=== PATIENT | male | born 1960 | race Caucasian/White ===

== ENCOUNTER 2017-05-27 16:22 | Emergency (ER) | payer MEDICARE ==
[~2017-05-27] VITALS: Ht 182.9 cm; Wt 120.0 kg
[2017-05-27 16:37] VITALS: BP 132/85; PULSE 94; RESP 18; TEMP 98.1; O2SAT 98
[2017-05-27] MEDS ORDERED: RANI150T PO (18:09)
[2017-05-27] MEDS ORDERED: LORA-373 PO (18:09)
[2017-05-27] MEDS ORDERED: FLUO40CA PO (18:09)
[2017-05-27] MEDS ORDERED: CIAL5TAB PO (18:09)
[2017-05-27] MEDS ORDERED: RAMI10CA PO (18:09)
[2017-05-27] MEDS ORDERED: CYCL1TAB29 PO (18:09)
[2017-05-27] MEDS ORDERED: TAMS0.4C4 PO (18:09)
[2017-05-27] MEDS ORDERED: GABA600T PO (18:09)
[2017-05-27] MEDS ORDERED: OXYC1TAB63 PO (18:09)
[2017-05-27] MEDS ORDERED: ALLO300T2 PO (18:09)
[2017-05-27] MEDS ORDERED: AMLO2.5T PO (18:09)
[2017-05-27] MEDS ORDERED: TEMA15CA PO (18:09)
--- NOTE | 2017-05-27 18:09 | PD ---
HPI Chief Complaint: Medical Clearance Time Seen by Provider: 17:56 Travel History International Travel<30 days: No Contact w/Intl Traveler<30days: No Traveled to known affect area: No History of Present Illness HPI 56 y/o male presents with his stoma being out for about 3 or 4 hours. He states he has no stool from his rectum and it only comes out his stoma and this has not happened since yesterday because he's had a little bit of his stoma out since then. He states he is visiting from [place] and had surgery because of rectal cancer. He states he tried to place sugar on his stoma and ice but it would still not go back and so he was advised to come here. He denies any other concurrent complaints at this time. He is here on vacation. [facility] Past Medical History Cancer: Yes (rectal) Hypertension: Yes Past Surgical History Abdominal Surgery: Yes (abdominal surgery with stoma) Social History Tobacco Use: No Allergies-Medications (Allergen,Severity, Reaction): Coded Allergies: senna (Verified Allergy, Severe, Hives, 05/28/17) Reported Meds & Prescriptions Reported Meds & Active Scripts Active Reported Cialis (Tadalafil) 5 Mg Tab 5 Mg PO DAILY Do not exceed 1 dose/day. Temazepam 15 Mg Cap 15 Mg PO HS PRN Flexeril (Cyclobenzaprine HCl) 10 Mg Tab 10 Mg PO TID Oxycodone-Acetaminophen 5-325 mg Tab 1 Tab PO Q6H PRN Tamsulosin (Tamsulosin HCl) 0.4 Mg Cap 0.8 Mg PO DAILY Ranitidine (Ranitidine HCl) 150 Mg Tab 150 Mg PO BID Ramipril 10 Mg Cap 10 Mg PO DAILY Lorazepam 0.5 Mg Tab 0.5 Mg PO BID Gabapentin 600 Mg Tab 600 Mg PO DAILY Fluoxetine (Fluoxetine HCl) 40 Mg Cap 40 Cap PO DAILY Amlodipine (Amlodipine Besylate) 2.5 Mg Tab 2.5 Mg PO DAILY Allopurinol 300 Mg Tab 300 Mg PO DAILY Review of Systems Except as stated in HPI: all other systems reviewed are Neg Physical Exam Narrative GENERAL: Well-nourished, well-developed patient. SKIN: Warm and dry. HEAD: Normocephalic and atraumatic. EYES: No injection or drainage. ENT: No nasal drainage noted. NECK: Supple, trachea midline. CARDIOVASCULAR: Regular rate and rhythm RESPIRATORY: no increased effort. No accessory muscle use. GASTROINTESTINAL: Abdomen soft, non-tender, nondistended. Approximately 5 cm of bowel is protruding from stoma site and unable to reduce EXTREMITIES: No edema. NEUROLOGICAL: Awake and alert. Motor and sensory grossly within normal limits. Normal speech. Data Data Last Documented VS Vital Signs Date Time Temp Pulse Resp B/P (MAP) Pulse Ox O2 Delivery O2 Flow Rate FiO2 05/27/17 20:48 05/27/17 20:17 100 Nasal Cannula 3.00 05/27/17 19:25 81 16 05/27/17 16:37 98.1 Orders Orders Complete Blood Count With Diff (05/27/17 18:04) Basic Metabolic Panel (Bmp) (05/27/17 18:04) Act Partial Throm Time (Ptt) (05/27/17 18:04) Prothrombin Time / Inr (Pt) (05/27/17 18:04) Iv Access Insert/Monitor (05/27/17 18:04) Ecg Monitoring (05/27/17 18:04) Oximetry (05/27/17 18:04) Propofol 200 Mg/20 Ml Inj (Diprivan 200 (05/27/17 19:00) Heparin Central Flush (Heparin Central F (05/27/17 20:00) Labs Laboratory Tests Test 05/27/17 18:45 White Blood Count 10.9 TH/MM3 Red Blood Count 4.87 MIL/MM3 Hemoglobin 14.6 GM/DL Hematocrit 42.4 % Mean Corpuscular Volume 87.1 FL Mean Corpuscular Hemoglobin 29.9 PG Mean Corpuscular Hemoglobin Concent 34.3 % Red Cell Distribution Width 15.8 % Platelet Count 181 TH/MM3 Mean Platelet Volume 8.4 FL Neutrophils (%) (Auto) 71.0 % Lymphocytes (%) (Auto) 18.8 % Monocytes (%) (Auto) 7.9 % Eosinophils (%) (Auto) 1.7 % Basophils (%) (Auto) 0.6 % Neutrophils # (Auto) 7.7 TH/MM3 Lymphocytes # (Auto) 2.1 TH/MM3 Monocytes # (Auto) 0.9 TH/MM3 Eosinophils # (Auto) 0.2 TH/MM3 Basophils # (Auto) 0.1 TH/MM3 CBC Comment DIFF FINAL Differential Comment Prothrombin Time 10.7 SEC Prothromb Time International Ratio 1.0 RATIO Activated Partial Thromboplast Time 70.3 SEC Blood Urea Nitrogen 10 MG/DL Creatinine 0.89 MG/DL Random Glucose 86 MG/DL Calcium Level 8.8 MG/DL Sodium Level 138 MEQ/L Potassium Level 3.9 MEQ/L Chloride Level 106 MEQ/L Carbon Dioxide Level 25.2 MEQ/L Anion Gap 7 MEQ/L Estimat Glomerular Filtration Rate 88 ML/MIN MDM Medical Decision Making Medical Screen Exam Complete: Yes Emergency Medical Condition: Yes Medical Record Reviewed: Yes (past history confirmed) Interpretation(s) CBC & BMP Diagram 05/27/17 18:45 Calcium Level 8.8 Differential Diagnosis Stoma prolapse, obstruction, hernia Narrative Course Will check blood work and discuss with surgeon Patient agrees to procedural sedation Patient agrees to discharge when awake and talking with close General surgery follow-up Procedures Procedure Narrative After the risks and benefits were discussed the following procedure was performed: MODERATE SEDATION: The patient was placed on a cardiac care unit nurse and pulse oximetry. An ambu bag and suction was immediately available at bedside. The patient was monitored by the nurse. Oxygen saturation, heart rate and blood pressure were monitored. Procedural sedation was acheived using 100 mg of propofol . The patient was observed until awake and alert. Procedural Sedation time in attendance was 15 minutes including set up. Physician Communication Physician Communication dr sorto will come to bedside dr sorot was able to reduce and placed stoma bag, will follow outpatient Diagnosis Primary Impression: Intestinal stoma prolapse Patient Instructions: General Instructions Additional Instructions: return as needed, call your surgeon for follow-up Med/Other Pt SpecificInfo: No Change to Meds Disposition: 01 DISCHARGE HOME Condition: Stable Simin Franco MD May 27, 2017 18:09
[2017-05-27 19:00] VITALS: O2SAT 97
[2017-05-27] MEDS ORDERED: PROPOFOL 200 MG/20 ML AMP IV ONE (19:00)
[2017-05-27 19:06] VITALS: O2SAT 100
[2017-05-27 19:17] LABS: AUTOMATED NEUTROPHIL # 7.7 TH/MM3 (1.8-7.7); BASOPHIL # 0.1 TH/MM3 (0-0.2); BASOPHIL % 0.6 % (0.0-2.0); EOSINOPHIL # 0.2 TH/MM3 (0-0.4); EOSINOPHIL % 1.7 % (0.0-4.0); HEMATOCRIT 42.4 % (39.0-51.0); HEMO FLAGS DIFF FINAL; LYMPH % 18.8 % (9.0-44.0); LYMPHOCYTE # 2.1 TH/MM3 (1.0-4.8); MEAN CELL VOLUME 87.1 FL (80.0-100.0); MEAN CORPUSCULAR HEMOGLOBIN 29.9 PG (27.0-34.0); MEAN CORPUSCULAR HGB CONC 34.3 % (32.0-36.0); MONO % 7.9 % (0.0-8.0); PLATELET COUNT 181 TH/MM3 (150-450); RED BLOOD COUNT 4.87 MIL/MM3 (4.50-5.90); RED CELL DISTRIBUTION WIDTH 15.8 % (11.6-17.2); WHITE BLOOD COUNT 10.9 TH/MM3 (4.0-11.0)
[2017-05-27 19:25] VITALS: BP 126/77; PULSE 81; RESP 16; O2SAT 100
[2017-05-27 19:26] LABS: BICARBONATE 25.2 MEQ/L (21.0-32.0); POTASSIUM 3.9 MEQ/L (3.5-5.1)
[2017-05-27 19:27] LABS: APTT (PATIENT) 70.3 SEC (24.3-30.1); PROTHROMBIN TIME - PATIENT 10.7 SEC (9.8-11.6)
[2017-05-27 20:17] VITALS: O2SAT 100
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
== END 2017-05-27 20:58 | disposition home or self-care (01) ==
LOC: NEPC 16:22
DX: C20 Malignant neoplasm of rectum (principal); K43.5 Parastomal hernia without obstruction or gangrene
CPT/HCPCS: 49999; 80048; 85025; 85610; 85730; 99156; 99157; J1642

== ENCOUNTER 2017-05-28 12:57 | Inpatient (IN) | payer MEDICARE ==
[~2017-05-28] VITALS: Ht 182.9 cm; Wt 116.8 kg
[~2017-05-28 12:57] MED LIST: ALLO300T2 PO; AMLO2.5T PO; CIAL5TAB PO; CYCL1TAB29 PO; FLUO40CA PO; GABA600T PO; LORA-373 PO; OXYC1TAB63 PO; RAMI10CA PO; RANI150T PO; TAMS0.4C4 PO; TEMA15CA PO
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
[2017-05-28 13:30] VITALS: BP 113/71; PULSE 99; RESP 16; O2SAT 96
[2017-05-28] MEDS: RESP: ALBUTEROL 2.5 MG/IPRATROPIUM 0.5 MG NEB (SCH) INH (13:47)
[2017-05-28 16:07] VITALS: BP 97/58; PULSE 66; RESP 16; O2SAT 95
[2017-05-28 16:36] LABS: AUTOMATED NEUTROPHIL # 8.2 TH/MM3 (1.8-7.7); BASOPHIL % 0.4 % (0.0-2.0); EOSINOPHIL # 0.2 TH/MM3 (0-0.4); EOSINOPHIL % 1.4 % (0.0-4.0); HEMATOCRIT 41.7 % (39.0-51.0); HEMO FLAGS DIFF FINAL; LYMPH % 14.9 % (9.0-44.0); LYMPHOCYTE # 1.6 TH/MM3 (1.0-4.8); MEAN CELL VOLUME 87.1 FL (80.0-100.0); MEAN CORPUSCULAR HEMOGLOBIN 29.7 PG (27.0-34.0); MEAN CORPUSCULAR HGB CONC 34.1 % (32.0-36.0); MONO % 8.5 % (0.0-8.0); NEUT % 74.8 % (16.0-70.0); PLATELET COUNT 178 TH/MM3 (150-450); RED BLOOD COUNT 4.78 MIL/MM3 (4.50-5.90); RED CELL DISTRIBUTION WIDTH 15.4 % (11.6-17.2)
[2017-05-28 16:51] LABS: BICARBONATE 24.9 MEQ/L (21.0-32.0); POTASSIUM 3.9 MEQ/L (3.5-5.1)
[2017-05-28] MEDS ORDERED: SODIUM CHLORIDE 0.9% FLUSH 10 ML FLUSH IV FLUSH PRN (17:45)
[2017-05-28] MEDS ORDERED: oxyCODONE/ACETAMINOPHEN 10 MG/325 MG TAB PO PRN (17:45)
[2017-05-28] MEDS ORDERED: oxyCODONE/ACETAMINOPHEN 5 MG/325 MG TAB PO PRN (17:45)
[2017-05-28] MEDS ORDERED: MORPHINE SULFATE 4 MG/ML INJ IV PRN (17:45)
[2017-05-28 18:00] VITALS: BP 106/59; PULSE 97; RESP 16; O2SAT 97
--- NOTE | 2017-05-28 18:08 | RADRPT ---
EXAM DATE/TIME: 05/28/2017 17:55 [facility] COMPARISON: No previous studies available for comparison. INDICATIONS : Evaluate for pneumonia, pneumothorax, or communicable disease. Pre op for abdominal stoma. MEDICAL HISTORY : Hypertension. SURGICAL HISTORY : Lobectomy of right side. Ileostomy. Colostomy. ENCOUNTER: Initial ACUITY: 1 day PAIN SCORE: 0/10 LOCATION: Bilateral chest FINDINGS: No pneumonia, pleural effusion or pneumothorax seen. Heart size within normal limits. No evidence of lymphadenopathy. There is a right internal jugular Asfwsr-o-Dyle catheter with tip in the superior vena cava. There is an approximately 16mm loop at the venous entry site. No tight kink seen. CONCLUSION: No evidence of acute cardiopulmonary disease. Tyrese Augustin MD on May 28, 2017 at 18:06 Board Certified Radiologist. This report was verified electronically.
--- NOTE | 2017-05-28 18:52 | RADRPT ---
EXAM DATE/TIME: 05/28/2017 18:25 [facility] COMPARISON: No previous studies available for comparison. INDICATIONS : Patient states prolapsed stoma. MEDICAL HISTORY : Carcinoma, rectal. SURGICAL HISTORY : Colostomy. ENCOUNTER: Initial ACUITY: 2 days PAIN SCORE: 2/10 LOCATION: Bilateral Abdomen FINDINGS: Distended colon with a large amount of stool noted. Caliber up to 9.5 cm. No evidence of small bowel or gastric distention. No free air seen. CONCLUSION: Nonspecific distention of the colon with a large amount of stool. Nondistended stomach and small dahlia l. Tyrese Augustin MD on May 28, 2017 at 18:50 Board Certified Radiologist. This report was verified electronically.
[2017-05-28 20:00] VITALS: BP 129/78; PULSE 88; RESP 17; TEMP 96; O2SAT 97
[2017-05-28] MEDS: LEVOFLOXACIN 500 MG PREMIX INJ 100 ML IV SCH (20:04)
[2017-05-28] MEDS: metroNIDAZOLE 500 MG INJ 100 ML IV SCH (20:54)
[2017-05-28] MEDS: SODIUM CHLORIDE 0.9% FLUSH 10 ML FLUSH IV FLUSH SCH (20:55)
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
[2017-05-29] VITALS: BP 106/69; PULSE 86; RESP 17; TEMP 97.4; O2SAT 97
[2017-05-29] MEDS: metroNIDAZOLE 500 MG INJ 100 ML IV SCH ×4 (05:22→21:06)
[2017-05-29 08:00] VITALS: BP 96/54; PULSE 83; RESP 16; TEMP 97.3; O2SAT 93
[2017-05-29] MEDS: SODIUM CHLORIDE 0.9% FLUSH 10 ML FLUSH IV FLUSH SCH ×2 (08:11→21:06)
[2017-05-29 12:00] VITALS: BP 123/68; PULSE 100; RESP 18; TEMP 97.9; O2SAT 98
[2017-05-29] MEDS ORDERED: GLYCOPYRROLATE 0.2 MG/ML VIAL IV ONE (12:00)
[2017-05-29] MEDS ORDERED: MIDAZOLAM HCL 2 MG/2 ML VIAL IV ONE (12:00)
[2017-05-29] MEDS ORDERED: LACTATED RINGER'S 1000 ML INJ 3,000 ML IV ONE (12:00)
[2017-05-29] MEDS ORDERED: ROCURONIUM INJ 50 MG/5 ML SYRINGE IV PUSH ONE (12:00)
[2017-05-29] MEDS ORDERED: NEOSTIGMINE 3 MG/3 ML SYR IV ONE (12:00)
--- NOTE | 2017-05-29 12:24 | EKG ---
Date Performed: 05/28/2017 Time Performed: 17:55:28 PTAGE: 56 years EKG: Normal Sinus rhythm Nonspecific intraventricular conduction delay The Q-waves are nondiagnostic BORDERLINE ECG NO PREVIOUS TRACING DOCTOR: Otoniel Salmeron Interpretating Date/Time 05/29/2017 12:22:46
[2017-05-29] MEDS ORDERED: BUPIVACAINE/EPINEPHRINE 0.25% 50 ML VIAL ONE (14:19)
[2017-05-29] MEDS ORDERED: oxyCODONE/ACETAMINOPHEN 5 MG/325 MG TAB PO PRN (15:45)
[2017-05-29] MEDS ORDERED: DO NOT ADM ANY ANTICOAGULANT DRUGS PRN (15:53)
--- NOTE | 2017-05-29 15:53 | HHI.PR ---
cc: Tyrese Parr MD Immediate Post Op Note Procedure Date: May 29, 2017 Pre Op Diagnosis: (1) Parastomal hernia with obstruction, without gangrene (2) Colostomy prolapse (3) Intussusception of colon (4) History of rectal cancer (5) History of radiation therapy (6) History of chemotherapy (7) History of colostomy (8) History of colon resection Post Op Diagnosis: (1) Intussusception of colon (2) Colostomy prolapse (3) History of radiation therapy (4) History of rectal cancer (5) Parastomal hernia with obstruction, without gangrene (6) History of chemotherapy (7) History of colon resection (8) History of colostomy Surgeon: Tyrese Parr Manager Land(s): Dr. Munir wilcox M.D. Procedure: Resection of proximal descending colon Resection of distal sigmoid colon Reduction of ostomy prolapse and intussusception of colon Parastomal hernia repair Creation of colostomy Creation of mucous fistula Anesthesia: General Drains: None IVF Patient to: PACU Patient Condition: Good Implant/Devices: SEE IMPLANT LOG (if applicable) Date/Time of Procedure: SEE SURGICAL CARE RECORD Tyrese Parr MD May 29, 2017 15:53
[2017-05-29] MEDS ORDERED: *MEPERIDINE 25 MG INJ VIAL PERIprocedural Use ONLY ONE (15:55)
[2017-05-29 16:00] VITALS: BP 123/76; PULSE 18; RESP 18; TEMP 96.6; O2SAT 95
[2017-05-29] MEDS ORDERED: NALOXONE HCL 0.4 MG/ML AMP IV PUSH PRN (16:00)
[2017-05-29] MEDS: SODIUM CHLOR 0.9% 1000 ML INJ 1,000 ML IV SCH (16:10)
[2017-05-29] MEDS: HYDROmorphone HCL PCA 6 MG/30 ML IV SCH ×3 (16:53→22:51)
[2017-05-29] MEDS: CYCLOBENZAPRINE HCL 10 MG TAB PO SCH (17:38)
[2017-05-29 20:00] VITALS: BP 108/71; PULSE 92; RESP 18; TEMP 97.4; O2SAT 92
[2017-05-29] MEDS: LEVOFLOXACIN 500 MG PREMIX INJ 100 ML IV SCH (21:06)
[2017-05-29] MEDS: LORazepam 0.5 MG TAB PO SCH (21:07)
[2017-05-29] MEDS: PCA - TOTAL MG DILAUDID DELIVERED PER SHIFT OTHER SCH (21:58)
[2017-05-30] VITALS: BP 107/63; PULSE 90; RESP 18; TEMP 95.7; O2SAT 94
[2017-05-30] MEDS: SODIUM CHLOR 0.9% 1000 ML INJ 1,000 ML IV SCH ×3 (02:30→22:30)
[2017-05-30] MEDS: HYDROmorphone HCL PCA 6 MG/30 ML IV SCH ×3 (05:02→21:51)
[2017-05-30] MEDS: PCA - TOTAL MG DILAUDID DELIVERED PER SHIFT OTHER SCH ×3 (05:03→22:00)
[2017-05-30] MEDS: metroNIDAZOLE 500 MG INJ 100 ML IV SCH ×3 (05:17→22:06)
[2017-05-30 08:00] VITALS: BP 109/57; PULSE 104; RESP 18; TEMP 98.4; O2SAT 90
[2017-05-30] MEDS: SODIUM CHLORIDE 0.9% FLUSH 10 ML FLUSH IV FLUSH SCH ×2 (09:00→21:00)
[2017-05-30] MEDS: CYCLOBENZAPRINE HCL 10 MG TAB PO SCH ×3 (09:00→18:00)
[2017-05-30 09:10] VITALS: RESP 18
[2017-05-30] MEDS: TAMSULOSIN HCL 0.4 MG CAP PO SCH (09:14)
[2017-05-30] MEDS: GABAPENTIN 300 MG CAP PO SCH (09:14)
[2017-05-30] MEDS: LORazepam 0.5 MG TAB PO SCH ×2 (09:14→21:52)
[2017-05-30] MEDS: amLODIPine BESYLATE 5 MG TAB PO SCH (09:14)
[2017-05-30] MEDS: RAMIPRIL 5 MG CAP PO SCH (09:15)
[2017-05-30] MEDS: FLUoxetine HCL 20 MG CAP PO SCH (09:15)
--- NOTE | 2017-05-30 10:04 | HHI.PR ---
Subjective Subjective Notes feels fine, wants his home meds, pain controlled Objective Vitals/I&O Vital Signs Date Time Temp Pulse Resp B/P (MAP) Pulse Ox O2 Delivery O2 Flow Rate FiO2 05/30/17 08:00 98.4 104 18 109/57 (74) 90 05/29/17 20:00 Nasal Cannula 2.00 Abdomen: Non-distended, Post-op tenderness, BS normal Narrative Exam ostomy edematous, viable, no output. A/P Assessment and Plan POD 1 colostomy revision doing well await ostomy function oob home meds restarted. Munir Goodrich MD May 30, 2017 10:04
[2017-05-30] MEDS: FAMOTIDINE 20 MG TAB PO SCH ×2 (10:56→21:00)
[2017-05-30 12:00] VITALS: BP 103/63; PULSE 94; RESP 18; TEMP 99.6; O2SAT 95
[2017-05-30 16:00] VITALS: BP 107/67; PULSE 88; RESP 18; TEMP 99; O2SAT 96
[2017-05-30 20:00] VITALS: BP 120/65; PULSE 102; RESP 18; TEMP 98; O2SAT 89
[2017-05-30] MEDS ORDERED: RESP: ALBUTEROL 2.5 MG/IPRATROPIUM 0.5 MG NEB (PRN) NEB (21:15)
[2017-05-30] MEDS: guaiFENesin E.R. 600 MG TAB PO SCH (21:48)
[2017-05-30] MEDS: LEVOFLOXACIN 500 MG PREMIX INJ 100 ML IV SCH (22:06)
[2017-05-31] VITALS (8 sets, daily range): BP systolic 92–113; BP diastolic 59–69; PULSE 63–88; RESP 17–20; TEMP 96.1–100.4; O2SAT 93–98
[2017-05-31] MEDS: PCA - TOTAL MG DILAUDID DELIVERED PER SHIFT OTHER SCH ×3 (05:14→22:00)
[2017-05-31] MEDS: metroNIDAZOLE 500 MG INJ 100 ML IV SCH ×3 (05:14→23:02)
[2017-05-31] MEDS: HYDROmorphone HCL PCA 6 MG/30 ML IV SCH ×2 (06:12→16:05)
[2017-05-31] MEDS: SODIUM CHLOR 0.9% 1000 ML INJ 1,000 ML IV SCH ×2 (08:30→12:51)
[2017-05-31] MEDS: LORazepam 0.5 MG TAB PO SCH ×2 (08:38→23:03)
[2017-05-31] MEDS: FLUoxetine HCL 20 MG CAP PO SCH (08:39)
[2017-05-31] MEDS: RAMIPRIL 5 MG CAP PO SCH (08:39)
[2017-05-31] MEDS: TAMSULOSIN HCL 0.4 MG CAP PO SCH (08:39)
[2017-05-31] MEDS: GABAPENTIN 300 MG CAP PO SCH (08:39)
[2017-05-31] MEDS: amLODIPine BESYLATE 5 MG TAB PO SCH (08:39)
[2017-05-31] MEDS: FAMOTIDINE 20 MG TAB PO SCH ×2 (08:41→21:00)
[2017-05-31] MEDS: SODIUM CHLORIDE 0.9% FLUSH 10 ML FLUSH IV FLUSH SCH ×2 (09:00→21:00)
[2017-05-31] MEDS: CYCLOBENZAPRINE HCL 10 MG TAB PO SCH (09:00)
--- NOTE | 2017-05-31 09:08 | HHI.PR ---
Subjective Subjective Notes ostomy bag leaking, vomited x1 yesterday Objective Vitals/I&O Vital Signs Date Time Temp Pulse Resp B/P (MAP) Pulse Ox O2 Delivery O2 Flow Rate FiO2 05/31/17 08:00 98.5 88 17 92/59 (70) 93 05/30/17 09:10 Nasal Cannula 2.00 Abdomen: Other (pink viable ostomy, poor seal) A/P Assessment and Plan POD 2 colostomy revision PLAN continue clears , await ostomy function oob replace ostomy bag address home meds adjustments Kieran Amador MD May 31, 2017 09:08
[2017-05-31] MEDS: guaiFENesin E.R. 600 MG TAB PO SCH ×2 (09:09→23:02)
[2017-05-31] MEDS: ALLOPURINOL 300 MG TAB PO SCH (10:20)
[2017-05-31] MEDS: PANTOPRAZOLE SOD 40 MG DELAYED RELEASE TAB PO SCH (10:20)
[2017-05-31 14:04] LABS: AUTOMATED NEUTROPHIL # 8.8 TH/MM3 (1.8-7.7); BASOPHIL % 0.2 % (0.0-2.0); EOSINOPHIL # 0.1 TH/MM3 (0-0.4); EOSINOPHIL % 0.9 % (0.0-4.0); HEMATOCRIT 34.8 % (39.0-51.0); HEMO FLAGS DIFF FINAL; LYMPH % 13.2 % (9.0-44.0); LYMPHOCYTE # 1.5 TH/MM3 (1.0-4.8); MEAN CELL VOLUME 87.9 FL (80.0-100.0); MEAN CORPUSCULAR HEMOGLOBIN 29.4 PG (27.0-34.0); MEAN CORPUSCULAR HGB CONC 33.4 % (32.0-36.0); MONO % 9.1 % (0.0-8.0); NEUT % 76.6 % (16.0-70.0); PLATELET COUNT 171 TH/MM3 (150-450); RED BLOOD COUNT 3.95 MIL/MM3 (4.50-5.90); RED CELL DISTRIBUTION WIDTH 15.3 % (11.6-17.2); WHITE BLOOD COUNT 11.4 TH/MM3 (4.0-11.0)
[2017-05-31 14:19] LABS: BICARBONATE 29.5 MEQ/L (21.0-32.0); POTASSIUM 3.6 MEQ/L (3.5-5.1)
[2017-05-31] MEDS: LEVOFLOXACIN 500 MG PREMIX INJ 100 ML IV SCH (23:02)
[2017-06-01] VITALS: BP 122/75; PULSE 71; RESP 18; TEMP 97.6; O2SAT 92
[2017-06-01] MEDS: HYDROmorphone HCL PCA 6 MG/30 ML IV SCH ×2 (03:37→19:55)
[2017-06-01] MEDS: SODIUM CHLOR 0.9% 1000 ML INJ 1,000 ML IV SCH ×2 (03:40→14:30)
[2017-06-01] MEDS: PCA - TOTAL MG DILAUDID DELIVERED PER SHIFT OTHER SCH ×3 (03:41→21:08)
[2017-06-01] MEDS: metroNIDAZOLE 500 MG INJ 100 ML IV SCH ×3 (03:41→21:12)
[2017-06-01 04:33] VITALS: BP 121/78; PULSE 86; RESP 18; TEMP 98.3; O2SAT 93
[2017-06-01 08:00] VITALS: BP 105/59; PULSE 82; RESP 18; TEMP 97.8; O2SAT 96
[2017-06-01] MEDS: RAMIPRIL 5 MG CAP PO SCH (09:00)
[2017-06-01] MEDS: amLODIPine BESYLATE 5 MG TAB PO SCH (09:00)
[2017-06-01] MEDS: SODIUM CHLORIDE 0.9% FLUSH 10 ML FLUSH IV FLUSH SCH ×2 (09:00→21:00)
[2017-06-01] MEDS: FAMOTIDINE 20 MG TAB PO SCH ×2 (09:00→21:00)
--- NOTE | 2017-06-01 09:02 | HHI.PR ---
cc: Elsa Olson MD Subjective Subjective Notes DAILY PROGRESS NOTE FOR SURGICAL ATTENDING, DR. ELSA OLSON Sitting up in bed Patient has a few questions are answered about his recovery what to expect Had some flatus through the ostomy Objective Vitals/I&O Vital Signs Date Time Temp Pulse Resp B/P (MAP) Pulse Ox O2 Delivery O2 Flow Rate FiO2 06/01/17 08:00 97.8 82 18 105/59 (74) 96 05/31/17 14:22 Room Air 05/30/17 09:10 2.00 Labs Laboratory Tests Test 05/31/17 13:25 White Blood Count 11.4 Red Blood Count 3.95 Hemoglobin 11.6 Hematocrit 34.8 Mean Corpuscular Volume 87.9 Mean Corpuscular Hemoglobin 29.4 Mean Corpuscular Hemoglobin Concent 33.4 Red Cell Distribution Width 15.3 Platelet Count 171 Mean Platelet Volume 8.1 Neutrophils (%) (Auto) 76.6 Lymphocytes (%) (Auto) 13.2 Monocytes (%) (Auto) 9.1 Eosinophils (%) (Auto) 0.9 Basophils (%) (Auto) 0.2 Neutrophils # (Auto) 8.8 Lymphocytes # (Auto) 1.5 Monocytes # (Auto) 1.0 Eosinophils # (Auto) 0.1 Basophils # (Auto) 0.0 CBC Comment DIFF FINAL Differential Comment Blood Urea Nitrogen 8 Creatinine 0.83 Random Glucose 91 Calcium Level 8.7 Sodium Level 134 Potassium Level 3.6 Chloride Level 100 Carbon Dioxide Level 29.5 Anion Gap 5 Estimat Glomerular Filtration Rate 95 Radiology Last Impressions Chest X-Ray 05/28/17 1730 Signed Impressions: Service Date/Time: May 17:55 - CONCLUSION: No evidence of acute cardiopulmonary disease. Tyrese Augustin MD Abdomen X-Ray 05/28/17 0000 Signed Impressions: Service Date/Time: May 18:25 - CONCLUSION: Nonspecific distention of the colon with a large amount of stool. Nondistended stomach and small bowel. Tyrese Augustin MD Lungs: Clear Abdomen: Post-op tenderness Wound Wound : Wound Location: Abdomen (ostomy pink some air in the ostomy bag) Appearance: Clean & Dry A/P Problem List: (1) Colostomy in place ICD Codes: Z93.3 - Colostomy status Status: Chronic (2) History of radiation therapy ICD Codes: Z92.3 - Personal history of irradiation (3) History of rectal cancer ICD Codes: Z85.048 - Personal history of other malignant neoplasm of rectum, rectosigmoid junction, and anus (4) Parastomal hernia with obstruction, without gangrene ICD Codes: K43.3 - Parastomal hernia with obstruction, without gangrene (5) History of colostomy ICD Codes: Z98.890 - Other specified postprocedural states (6) History of colon resection ICD Codes: Z90.49 - Acquired absence of other specified parts of digestive tract Assessment and Plan 56-year-old gentleman who has a history of rectal cancer treated with chemotherapy radiation therapy with revision of colostomy secondary to intussusception and parastomal hernia Appears to be recovering nicely Wean off IV pain medicine Advance diet as tolerated anticipate discharge in a few days He will make arrangements for follow-up in [place] Attending Statement NOTE FOR SURGICAL ATTENDING, DR. ELSA OLSON I attest that I had a [id number] encounter with the patient on the same day, and personally performed and documented my assessment and findings in the medical record. The following services were provided during this hospital visit: Chart data review, vital sign assessments/reviewing monitor data Review of consultations notes if present. Medication orders/review and/or management Ordering and/or reviewing lab tests Ordering and/or interpreting/reviewing x-rays and/or diagnostic studies Care of the patient and discussion of the patient with the care team Documentation time To help prompt me to consider important information that might be impacting today's encounter and assessment, information from prior notes written by myself or my colleagues may have been "brought forward/copy and pasted" into today's note. Elsa Olson MD Jun 01, 2017 09:02
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
[2017-06-01] MEDS: GABAPENTIN 300 MG CAP PO SCH (10:08)
[2017-06-01] MEDS: FLUoxetine HCL 20 MG CAP PO SCH (10:08)
[2017-06-01] MEDS: ALLOPURINOL 300 MG TAB PO SCH (10:08)
[2017-06-01] MEDS: PANTOPRAZOLE SOD 40 MG DELAYED RELEASE TAB PO SCH (10:08)
[2017-06-01] MEDS: guaiFENesin E.R. 600 MG TAB PO SCH ×2 (10:08→21:08)
[2017-06-01] MEDS: TAMSULOSIN HCL 0.4 MG CAP PO SCH (10:08)
[2017-06-01] MEDS: LORazepam 0.5 MG TAB PO SCH ×2 (10:09→21:08)
[2017-06-01 12:00] VITALS: BP 113/78; PULSE 66; RESP 18; TEMP 98.7; O2SAT 96
--- NOTE | 2017-06-01 15:11 | PD.WCN.NOT ---
Wound Consult Description: Consult for OSTOMY MANAGEMENT of llq per Dr Parr Communicated with: Patient ELENA Herndon Recommendation: Change "cut to fit" appliance using template, in patients possession, prior to leaks. Do not use stomahesive to "fix leaks" change barrier instead Empty pouch of effluent when 1/3-1/2 full Patient stoma size is 2"x 2 1/2" oval Additional Information: Patient seen on [address] [place] [address] for ostomy assessment and appliance change. Ostomy Type: Other (Double-barrel with descending colon on the medial side and mucus fistula on the lateral side.) Surgeon: Tyrese Parr MD Date of Surgery: May 29, 2017 Complete: Other (Patient states that he has had an ileostomy and a loop colostomy prior and has his own supplies and is knowledgeable regarding the stoma) Educated patient on: Patients' cut to fit appliance used as requested per patient. Cut to fit appliances from our SPD are 4" and could be used for his stoma measuring 2" x 2 1/2" Stoma on the right side near his old scar on the mid section is the colostomy and the left side of the stoma is the mucus fistula Mucus from left and stool from right side Template given to patient for next appliance change Additional information Patient seen on [address] [place] [address] for ostomy assessment and appliance change. Upon entering room it was noted that the barrier was leaking @ 9 o'clock with a tissue stuck in and under the barrier. Appliance was removed using adhesive removal wipes. There was some stoma paste that was able to be removed causing some irritation after removal and there was also some stomahesive that was unable to be removed and left in place, 2 sutures noted at 3 and 9 o'clock otherwise peristomal skin is unremarkable. Stoma is red, oval as indicated from the measurements above, moist, minimally functioning with air in the pouch only , no stool at this time. The mucocutaneous junction is noted with mucus and sutures with minimal sanguinous drainage, not actively draining. Peristomal skin was cleansed with water and allowed to air dry while cutting the barrier and ring to fit around stoma. Appliance was placed and pouch was secured to the flange. Patient asked to keep the template for future appliances. Fadia Montoya [facility] Jun 01, 2017 15:11
[2017-06-01 16:00] VITALS: BP 131/86; PULSE 75; RESP 16; TEMP 98; O2SAT 95
[2017-06-01 20:00] VITALS: BP 118/71; PULSE 64; RESP 18; TEMP 99; O2SAT 96
[2017-06-01] MEDS: LEVOFLOXACIN 500 MG PREMIX INJ 100 ML IV SCH (21:12)
[2017-06-02] VITALS (8 sets, daily range): BP systolic 104–119; BP diastolic 61–76; PULSE 60–83; RESP 16–18; TEMP 97.1–98.6; O2SAT 92–97
[2017-06-02] MEDS: SODIUM CHLOR 0.9% 1000 ML INJ 1,000 ML IV SCH ×3 (00:30→20:14)
[2017-06-02] MEDS: metroNIDAZOLE 500 MG INJ 100 ML IV SCH (05:30)
[2017-06-02] MEDS: PCA - TOTAL MG DILAUDID DELIVERED PER SHIFT OTHER SCH ×3 (06:00→20:15)
--- NOTE | 2017-06-02 08:13 | HHI.PR ---
cc: Elsa Olosn MD Subjective Subjective Notes DAILY PROGRESS NOTE FOR SURGICAL ATTENDING, DR. ELSA OLSON Doing well Tolerating diet Ostomy output Pain controlled Objective Vitals/I&O Vital Signs Date Time Temp Pulse Resp B/P (MAP) Pulse Ox O2 Delivery O2 Flow Rate FiO2 06/02/17 06:05 18 06/02/17 00:00 98.2 75 116/72 (83) 95 05/31/17 14:22 Room Air 05/30/17 09:10 2.00 Labs Laboratory Tests Test 05/28/17 16:00 05/31/17 13:25 Lactic Acid Level 0.8 mmol/L White Blood Count 11.4 TH/MM3 Red Blood Count 3.95 MIL/MM3 Hemoglobin 11.6 GM/DL Hematocrit 34.8 % Mean Corpuscular Volume 87.9 FL Mean Corpuscular Hemoglobin 29.4 PG Mean Corpuscular Hemoglobin Concent 33.4 % Red Cell Distribution Width 15.3 % Platelet Count 171 TH/MM3 Mean Platelet Volume 8.1 FL Neutrophils (%) (Auto) 76.6 % Lymphocytes (%) (Auto) 13.2 % Monocytes (%) (Auto) 9.1 % Eosinophils (%) (Auto) 0.9 % Basophils (%) (Auto) 0.2 % Neutrophils # (Auto) 8.8 TH/MM3 Lymphocytes # (Auto) 1.5 TH/MM3 Monocytes # (Auto) 1.0 TH/MM3 Eosinophils # (Auto) 0.1 TH/MM3 Basophils # (Auto) 0.0 TH/MM3 CBC Comment DIFF FINAL Differential Comment Blood Urea Nitrogen 8 MG/DL Creatinine 0.83 MG/DL Random Glucose 91 MG/DL Calcium Level 8.7 MG/DL Sodium Level 134 MEQ/L Potassium Level 3.6 MEQ/L Chloride Level 100 MEQ/L Carbon Dioxide Level 29.5 MEQ/L Anion Gap 5 MEQ/L Estimat Glomerular Filtration Rate 95 ML/MIN Radiology Last Impressions Chest X-Ray 05/28/17 1730 Signed Impressions: Service Date/Time: May 17:55 - CONCLUSION: No evidence of acute cardiopulmonary disease. Tyrese Augustin MD Abdomen X-Ray 05/28/17 0000 Signed Impressions: Service Date/Time: May 18:25 - CONCLUSION: Nonspecific distention of the colon with a large amount of stool. Nondistended stomach and small bowel. Tyrese Augusitn MD Cardiovascular: Regular Lungs: Clear Abdomen: Non-distended, Post-op tenderness Extremities: No edema (patient has gas and stool in his ostomy bag), Perfused A/P Problem List: (1) Colostomy in place ICD Codes: Z93.3 - Colostomy status Status: Chronic (2) History of radiation therapy ICD Codes: Z92.3 - Personal history of irradiation (3) History of rectal cancer ICD Codes: Z85.048 - Personal history of other malignant neoplasm of rectum, rectosigmoid junction, and anus (4) Parastomal hernia with obstruction, without gangrene ICD Codes: K43.3 - Parastomal hernia with obstruction, without gangrene (5) History of colostomy ICD Codes: Z98.890 - Other specified postprocedural states (6) History of colon resection ICD Codes: Z90.49 - Acquired absence of other specified parts of digestive tract Assessment and Plan 56-year-old gentleman who has a history of rectal cancer treated with chemotherapy radiation therapy with revision of colostomy secondary to intussusception and parastomal hernia Appears to be recovering nicely Wean off IV pain medicine Advance diet as tolerated anticipate discharge Thursday DC antibiotics today Advance diet He will make arrangements for follow-up in [place] Attending Statement NOTE FOR SURGICAL ATTENDING, DR. ELSA OLSON I attest that I had a [id number] encounter with the patient on the same day, and personally performed and documented my assessment and findings in the medical record. The following services were provided during this hospital visit: Chart data review, vital sign assessments/reviewing monitor data Review of consultations notes if present. Medication orders/review and/or management Ordering and/or reviewing lab tests Ordering and/or interpreting/reviewing x-rays and/or diagnostic studies Care of the patient and discussion of the patient with the care team Documentation time To help prompt me to consider important information that might be impacting today's encounter and assessment, information from prior notes written by myself or my colleagues may have been "brought forward/copy and pasted" into today's note. Elsa Olson MD Jun 02, 2017 08:13
[2017-06-02] MEDS ORDERED: oxyCODONE/ACETAMINOPHEN 5 MG/325 MG TAB PO PRN (08:15)
[2017-06-02] MEDS: FAMOTIDINE 20 MG TAB PO SCH ×2 (09:00→20:14)
[2017-06-02] MEDS: amLODIPine BESYLATE 5 MG TAB PO SCH (09:00)
[2017-06-02] MEDS: SODIUM CHLORIDE 0.9% FLUSH 10 ML FLUSH IV FLUSH SCH ×2 (09:00→20:14)
[2017-06-02] MEDS: RAMIPRIL 5 MG CAP PO SCH (10:38)
[2017-06-02] MEDS: PANTOPRAZOLE SOD 40 MG DELAYED RELEASE TAB PO SCH (10:39)
[2017-06-02] MEDS: guaiFENesin E.R. 600 MG TAB PO SCH ×2 (10:39→20:15)
[2017-06-02] MEDS: ALLOPURINOL 300 MG TAB PO SCH (10:39)
[2017-06-02] MEDS: LORazepam 0.5 MG TAB PO SCH ×2 (10:40→20:15)
[2017-06-02] MEDS: TAMSULOSIN HCL 0.4 MG CAP PO SCH (10:42)
[2017-06-02] MEDS: FLUoxetine HCL 20 MG CAP PO SCH (10:42)
[2017-06-02] MEDS: GABAPENTIN 300 MG CAP PO SCH (10:43)
[2017-06-02] MEDS: DOCUSATE SODIUM 100 MG CAP PO SCH ×2 (10:45→20:15)
[2017-06-02] MEDS: ENOXAPARIN SODIUM 30 MG/0.3 ML SYRINGE SQ SCH (10:45)
[2017-06-02] MEDS: oxyCODONE/ACETAMINOPHEN 5 MG/325 MG TAB PO PRN ×2 (12:18→18:36)
--- NOTE | 2017-06-02 14:42 | PD.WCN.NOT ---
Wound Consult Description: Consult for OSTOMY MANAGEMENT of llq per Dr Parr Communicated with: Patient Student RN Recommendation: Change "cut to fit" appliance using template, in patients possession, prior to leaks. Do not use stomahesive or tape to "fix leaks" change barrier instead Empty pouch of effluent when 1/3-1/2 full Patient stoma size is 2"x 2 1/2" oval Additional Information: Patient seen at the request of the patient and the RN for Ostomy appliance check for possible leaks. Ostomy Type: Other (Double-barrel with descending colon on the medial side and mucus fistula on the lateral side.) Surgeon: Tyrese Parr MD Date of Surgery: May 29, 2017 Complete: Other (Patient states that he has had an ileostomy and a loop colostomy prior and has his own supplies and is knowledgeable regarding the stoma) Educated patient on: The template previously used for the intact barrier in use was used again to precut a new barrier/wafer for next appliance change as patient was having difficulty marking it. Additional information Patient seen today ~1pm for appliance check. Patient states that he applied tape to try to keep the barrier from leaking. The tape was removed and the outer edge of the appliance is intact and noted without leaks. Patient states that he tried to digna his barrier and was unable to so he didn't cut it and he insists on using his own supplies. The barrier was visualized, template placed over barrier and using a permanent marker the shape was traced and cut out for his next appliance change. Explained to patient that if the barrier begins to leak it will need to be changed and not attempted to be fixed with tape. [facility] Mont[facility] Jun 02, 2017 14:42
[2017-06-03] VITALS: BP 104/57; PULSE 77; RESP 18; TEMP 98; O2SAT 95
[2017-06-03] MEDS: PCA - TOTAL MG DILAUDID DELIVERED PER SHIFT OTHER SCH (06:00)
[2017-06-03 08:00] VITALS: BP 120/76; PULSE 68; RESP 18; TEMP 99; O2SAT 96
[2017-06-03] MEDS: FAMOTIDINE 20 MG TAB PO SCH ×2 (09:00→21:00)
[2017-06-03] MEDS: DOCUSATE SODIUM 100 MG CAP PO SCH ×2 (09:32→21:59)
[2017-06-03] MEDS: FLUoxetine HCL 20 MG CAP PO SCH (09:32)
[2017-06-03] MEDS: guaiFENesin E.R. 600 MG TAB PO SCH ×2 (09:32→21:58)
[2017-06-03] MEDS: LORazepam 0.5 MG TAB PO SCH ×2 (09:32→21:58)
[2017-06-03] MEDS: ALLOPURINOL 300 MG TAB PO SCH (09:32)
[2017-06-03] MEDS: amLODIPine BESYLATE 5 MG TAB PO SCH (09:32)
[2017-06-03] MEDS: RAMIPRIL 5 MG CAP PO SCH (09:32)
[2017-06-03] MEDS: PANTOPRAZOLE SOD 40 MG DELAYED RELEASE TAB PO SCH (09:33)
[2017-06-03] MEDS: TAMSULOSIN HCL 0.4 MG CAP PO SCH (09:33)
[2017-06-03] MEDS: GABAPENTIN 300 MG CAP PO SCH (09:33)
[2017-06-03] MEDS: ENOXAPARIN SODIUM 30 MG/0.3 ML SYRINGE SQ SCH (09:33)
--- NOTE | 2017-06-03 11:08 | PD.WCN.NOT ---
Wound Consult Description: Consult for OSTOMY MANAGEMENT of llq per Dr Parr Communicated with: Patient Recommendation: Change "cut to fit" appliance using template, in patients possession, prior to leaks. Do not use stomahesive or tape to "fix leaks" change barrier instead Empty pouch of effluent when 1/3-1/2 full Patient stoma size is 2"x 2 1/2" oval Additional Information: Patient seen on [address] [place] [address] for colostomy assessment. Ostomy Type: Other (Double-barrel with descending colon on the medial side and mucus fistula on the lateral side.) Surgeon: Tyrese Parr MD Date of Surgery: May 29, 2017 Complete: Other (Patient states that he has had an ileostomy and a loop colostomy prior and has his own supplies and is knowledgeable regarding the stoma) Educated patient on: Ambulating Appliances Additional information Patient seen on [address] [place] [address] for Ostomy assessment. Pouch removed to reveal an oval, red, moist, functioning stoma with mucus and + flattus, moderately protruding, lumens noted at 3 and 9 o'clock, mucocutaneous junction not visualized at this time. Appliance is intact with minimal dried blood noted around barrier at 3 and 9 o'clock. Fadia Montoya [facility] Jun 03, 2017 11:08
[2017-06-03 12:00] VITALS: BP 110/70; PULSE 76; RESP 16; TEMP 98; O2SAT 96
[2017-06-03 16:00] VITALS: BP 109/71; PULSE 72; RESP 17; TEMP 96.2; O2SAT 95
--- NOTE | 2017-06-03 16:35 | HHI.PR ---
cc: Elsa Olson MD Subjective Subjective Notes DAILY PROGRESS NOTE FOR SURGICAL ATTENDING, DR. ELSA OLSON Locking holes Tolerating diet Flatus but no bowel movement Objective Vitals/I&O Vital Signs Date Time Temp Pulse Resp B/P (MAP) Pulse Ox O2 Delivery O2 Flow Rate FiO2 06/03/17 12:00 98.0 76 16 110/70 (83) 96 05/31/17 14:22 Room Air 05/30/17 09:10 2.00 Labs Laboratory Tests Test 05/28/17 16:00 05/31/17 13:25 Lactic Acid Level 0.8 mmol/L White Blood Count 11.4 TH/MM3 Red Blood Count 3.95 MIL/MM3 Hemoglobin 11.6 GM/DL Hematocrit 34.8 % Mean Corpuscular Volume 87.9 FL Mean Corpuscular Hemoglobin 29.4 PG Mean Corpuscular Hemoglobin Concent 33.4 % Red Cell Distribution Width 15.3 % Platelet Count 171 TH/MM3 Mean Platelet Volume 8.1 FL Neutrophils (%) (Auto) 76.6 % Lymphocytes (%) (Auto) 13.2 % Monocytes (%) (Auto) 9.1 % Eosinophils (%) (Auto) 0.9 % Basophils (%) (Auto) 0.2 % Neutrophils # (Auto) 8.8 TH/MM3 Lymphocytes # (Auto) 1.5 TH/MM3 Monocytes # (Auto) 1.0 TH/MM3 Eosinophils # (Auto) 0.1 TH/MM3 Basophils # (Auto) 0.0 TH/MM3 CBC Comment DIFF FINAL Differential Comment Blood Urea Nitrogen 8 MG/DL Creatinine 0.83 MG/DL Random Glucose 91 MG/DL Calcium Level 8.7 MG/DL Sodium Level 134 MEQ/L Potassium Level 3.6 MEQ/L Chloride Level 100 MEQ/L Carbon Dioxide Level 29.5 MEQ/L Anion Gap 5 MEQ/L Estimat Glomerular Filtration Rate 95 ML/MIN Path report noted Radiology Last Impressions Chest X-Ray 05/28/17 1730 Signed Impressions: Service Date/Time: May 17:55 - CONCLUSION: No evidence of acute cardiopulmonary disease. Tyrese Augustin MD Abdomen X-Ray 05/28/17 0000 Signed Impressions: Service Date/Time: May 18:25 - CONCLUSION: Nonspecific distention of the colon with a large amount of stool. Nondistended stomach and small bowel. Tyrese Augustin MD Cardiovascular: Regular Abdomen: Non-distended, Post-op tenderness (ostomy intact), BS normal Extremities: No edema, Perfused A/P Problem List: (1) Colostomy in place ICD Codes: Z93.3 - Colostomy status Status: Chronic (2) History of radiation therapy ICD Codes: Z92.3 - Personal history of irradiation Status: Chronic (3) History of rectal cancer ICD Codes: Z85.048 - Personal history of other malignant neoplasm of rectum, rectosigmoid junction, and anus Status: Chronic (4) Parastomal hernia with obstruction, without gangrene ICD Codes: K43.3 - Parastomal hernia with obstruction, without gangrene Status: Resolved (5) History of colostomy ICD Codes: Z98.890 - Other specified postprocedural states (6) History of colon resection ICD Codes: Z90.49 - Acquired absence of other specified parts of digestive tract Status: Chronic Assessment and Plan 56-year-old gentleman who has a history of rectal cancer treated with chemotherapy radiation therapy with revision of colostomy secondary to intussusception and parastomal hernia Appears to be recovering nicely he is off IV pain medicine Advanced diet was tolerated to regular He will make arrangements for follow-up in [place] He does not feel comfortable going home today until he has bowel movement Attending Statement NOTE FOR SURGICAL ATTENDING, DR. ELSA OLSON I attest that I had a [id number] encounter with the patient on the same day, and personally performed and documented my assessment and findings in the medical record. The following services were provided during this hospital visit: Chart data review, vital sign assessments/reviewing monitor data Review of consultations notes if present. Medication orders/review and/or management Ordering and/or reviewing lab tests Ordering and/or interpreting/reviewing x-rays and/or diagnostic studies Care of the patient and discussion of the patient with the care team Documentation time To help prompt me to consider important information that might be impacting today's encounter and assessment, information from prior notes written by myself or my colleagues may have been "brought forward/copy and pasted" into today's note. Elsa Olson MD Jun 03, 2017 16:35
[2017-06-03 20:44] VITALS: BP 110/73; PULSE 82; RESP 18; TEMP 98.5; O2SAT 97
[2017-06-03] MEDS: oxyCODONE/ACETAMINOPHEN 5 MG/325 MG TAB PO PRN (21:57)
[2017-06-04 00:43] VITALS: BP 105/54; PULSE 80; RESP 20; TEMP 99; O2SAT 97
[2017-06-04 08:00] VITALS: BP 125/72; PULSE 73; RESP 18; TEMP 96.9; O2SAT 98
[2017-06-04] MEDS: FAMOTIDINE 20 MG TAB PO SCH ×2 (09:00→21:00)
[2017-06-04] MEDS: ENOXAPARIN SODIUM 30 MG/0.3 ML SYRINGE SQ SCH (11:12)
[2017-06-04] MEDS: FLUoxetine HCL 20 MG CAP PO SCH (11:12)
[2017-06-04] MEDS: GABAPENTIN 300 MG CAP PO SCH (11:12)
[2017-06-04] MEDS: RAMIPRIL 5 MG CAP PO SCH (11:12)
[2017-06-04] MEDS: DOCUSATE SODIUM 100 MG CAP PO SCH ×2 (11:12→21:55)
[2017-06-04] MEDS: ALLOPURINOL 300 MG TAB PO SCH (11:13)
[2017-06-04] MEDS: PANTOPRAZOLE SOD 40 MG DELAYED RELEASE TAB PO SCH (11:13)
[2017-06-04] MEDS: LORazepam 0.5 MG TAB PO SCH ×2 (11:14→21:55)
[2017-06-04] MEDS: guaiFENesin E.R. 600 MG TAB PO SCH ×2 (11:14→21:55)
[2017-06-04] MEDS: TAMSULOSIN HCL 0.4 MG CAP PO SCH (11:14)
[2017-06-04] MEDS: amLODIPine BESYLATE 5 MG TAB PO SCH (11:14)
[2017-06-04 12:00] VITALS: BP 127/69; PULSE 77; RESP 19; TEMP 97; O2SAT 99
[2017-06-04] MEDS ORDERED: MAGNESIUM CITRATE SOLN 300 ML BTL PO ONE (13:00)
--- NOTE | 2017-06-04 15:35 | PD.WCN.NOT ---
Wound Consult Description: Consult for OSTOMY MANAGEMENT of llq per Dr Parr Communicated with: Patient Student RN Martha,RN Recommendation: Change "cut to fit" appliance with patients appliances on counter prior to leaks. Do not use stomahesive or tape to "fix leaks" change barrier instead and use barrier ring Empty pouch of effluent when 1/3-1/2 full Patient stoma size is 2" x 2 3/4" oval Additional Information: Patient seen on [address] [place] [address] for ostomy assessment and appliance change. Ostomy Type: Other (Double-barrel with descending colon on the medial side and mucus fistula on the lateral side.) Surgeon: Tyrese Parr MD Date of Surgery: May 29, 2017 Complete: Other (Patient states that he has had an ileostomy and a loop colostomy prior and has his own supplies and is knowledgeable regarding the stoma) Educated patient on: The need to use a cut to fit appliance in the next size up, the stoma measured larger at this assessment. Shaving around stoma with an electric razor Additional information Arrived to patients room with patient sleeping in bed. Awoke patient to assess stoma and appliance. Patient states that the appliance needs to be changed and has started to leak at 3 o'clock. No leaks were noted, however tape was lifting on that side. Using adhesive removal wipes, the barrier was removed. Peristomal skin was cleansed using water and washcloths only. 2 sutures noted to peristomal skin at 9 o'clock and 2 sutures noted on peristomal skin at 3 o' clock other hill unremarkable. Barrel stoma is noted with descending colon on medial side, red, moist, oval, moderately protruding, with lumen noted horizontally in the center, and functioning with flatus and mucus. The mucus fistula is noted on the lateral side with lumen at 5 o'clock, functioning with mucus and clear reddish/pink tinged liquid output noted. Cut to fit barrier was placed onto patient after securing the barrier ring to back of appliance. The pouch was then placed and 2 gloved hands were placed over the pouch for warmth to activate the polymers. Appliance used had been precut by scenario writer previously using the last measurements taken on 06/01/17. At next appliance change a new template will need to be used as stoma size and shape has changed. Fadia Montoya [facility] Jun 04, 2017 15:35
[2017-06-04] MEDS: oxyCODONE/ACETAMINOPHEN 5 MG/325 MG TAB PO PRN ×2 (15:48→21:55)
--- NOTE | 2017-06-04 16:46 | HHI.PR ---
Subjective Subjective Notes DAILY PROGRESS NOTE FOR SURGICAL ATTENDING, DR. ELSA PARR No BM yet Tolerating diet Objective Vitals/I&O Vital Signs Date Time Temp Pulse Resp B/P (MAP) Pulse Ox O2 Delivery O2 Flow Rate FiO2 06/04/17 12:00 97.0 77 19 127/69 (88) 99 05/31/17 14:22 Room Air Labs Laboratory Tests Test 05/28/17 16:00 05/31/17 13:25 Lactic Acid Level 0.8 mmol/L White Blood Count 11.4 TH/MM3 Red Blood Count 3.95 MIL/MM3 Hemoglobin 11.6 GM/DL Hematocrit 34.8 % Mean Corpuscular Volume 87.9 FL Mean Corpuscular Hemoglobin 29.4 PG Mean Corpuscular Hemoglobin Concent 33.4 % Red Cell Distribution Width 15.3 % Platelet Count 171 TH/MM3 Mean Platelet Volume 8.1 FL Neutrophils (%) (Auto) 76.6 % Lymphocytes (%) (Auto) 13.2 % Monocytes (%) (Auto) 9.1 % Eosinophils (%) (Auto) 0.9 % Basophils (%) (Auto) 0.2 % Neutrophils # (Auto) 8.8 TH/MM3 Lymphocytes # (Auto) 1.5 TH/MM3 Monocytes # (Auto) 1.0 TH/MM3 Eosinophils # (Auto) 0.1 TH/MM3 Basophils # (Auto) 0.0 TH/MM3 CBC Comment DIFF FINAL Differential Comment Blood Urea Nitrogen 8 MG/DL Creatinine 0.83 MG/DL Random Glucose 91 MG/DL Calcium Level 8.7 MG/DL Sodium Level 134 MEQ/L Potassium Level 3.6 MEQ/L Chloride Level 100 MEQ/L Carbon Dioxide Level 29.5 MEQ/L Anion Gap 5 MEQ/L Estimat Glomerular Filtration Rate 95 ML/MIN Radiology Last Impressions Chest X-Ray 05/28/17 1730 Signed Impressions: Service Date/Time: May 17:55 - CONCLUSION: No evidence of acute cardiopulmonary disease. Tyrese Augustin MD Abdomen X-Ray 05/28/17 0000 Signed Impressions: Service Date/Time: May 18:25 - CONCLUSION: Nonspecific distention of the colon with a large amount of stool. Nondistended stomach and small bowel. Tyrese Augustin MD Cardiovascular: Regular Lungs: Clear Abdomen: Non-distended, Non-tender, Other (colostomy and MF with applicance--- serous fluid drainage in bag ) Extremities: No edema A/P Problem List: (1) Colostomy in place ICD Codes: Z93.3 - Colostomy status Status: Chronic (2) History of radiation therapy ICD Codes: Z92.3 - Personal history of irradiation Status: Chronic (3) History of rectal cancer ICD Codes: Z85.048 - Personal history of other malignant neoplasm of rectum, rectosigmoid junction, and anus Status: Chronic (4) Parastomal hernia with obstruction, without gangrene ICD Codes: K43.3 - Parastomal hernia with obstruction, without gangrene Status: Resolved (5) History of colostomy ICD Codes: Z98.890 - Other specified postprocedural states (6) History of colon resection ICD Codes: Z90.49 - Acquired absence of other specified parts of digestive tract Status: Chronic Assessment and Plan 56 year old male POD6 colostomy revision secondary to intussusception and parastomal hernia -Regular diet -Await bowel function --- ordered mag citrate -Routine colostomy care -DC home when +BM -Rx on chart for Percocet Attending Statement NOTE FOR SURGICAL ATTENDING, DR. ELSA PARR I agree with above assessment and plan. The exam, history, and the medical decision-making described in the above note were completed with the assistance of the mid-level provider. I reviewed and agree with the findings presented. I attest that I had a [id number] encounter with the patient on the same day, and personally performed and documented my assessment and findings in the medical record. The following services were provided during this hospital visit: Chart data review, vital sign assessments/reviewing monitor data Review of consultations notes if present. Medication orders/review and/or management Ordering and/or reviewing lab tests Ordering and/or interpreting/reviewing x-rays and/or diagnostic studies Care of the patient and discussion of the patient with the care team Documentation time To help prompt me to consider important information that might be impacting today's encounter and assessment, information from prior notes written by myself or my colleagues may have been "brought forward/copy and pasted" into today's note. Maranda Mai Jun 04, 2017 16:46 Elsa Parr MD Jun 05, 2017 08:01
[2017-06-04 20:00] VITALS: BP 131/80; PULSE 80; RESP 20; TEMP 98.2; O2SAT 97
[2017-06-05] VITALS: BP 133/89; PULSE 80; RESP 20; TEMP 96.1; O2SAT 99
[2017-06-05 08:00] VITALS: BP 126/68; PULSE 70; RESP 18; TEMP 97.9; O2SAT 95
[2017-06-05] MEDS ORDERED: PEG (High)/E-LYTE SOLN 4000 ML BTL PO ONE (09:00)
[2017-06-05] MEDS: FAMOTIDINE 20 MG TAB PO SCH (09:00)
[2017-06-05] MEDS ORDERED: BISACODYL 10 MG SUPP RECTAL ONE (10:00)
[2017-06-05] MEDS: ENOXAPARIN SODIUM 30 MG/0.3 ML SYRINGE SQ SCH (10:49)
[2017-06-05] MEDS: GABAPENTIN 300 MG CAP PO SCH (10:49)
[2017-06-05] MEDS: LORazepam 0.5 MG TAB PO SCH (10:49)
[2017-06-05] MEDS: amLODIPine BESYLATE 5 MG TAB PO SCH (10:50)
[2017-06-05] MEDS: guaiFENesin E.R. 600 MG TAB PO SCH (10:50)
[2017-06-05] MEDS: ALLOPURINOL 300 MG TAB PO SCH (10:50)
[2017-06-05] MEDS: PANTOPRAZOLE SOD 40 MG DELAYED RELEASE TAB PO SCH (10:50)
[2017-06-05] MEDS: TAMSULOSIN HCL 0.4 MG CAP PO SCH (10:50)
[2017-06-05] MEDS: RAMIPRIL 5 MG CAP PO SCH (10:51)
[2017-06-05] MEDS: FLUoxetine HCL 20 MG CAP PO SCH (10:51)
[2017-06-05] MEDS: DOCUSATE SODIUM 100 MG CAP PO SCH (10:51)
--- NOTE | 2017-06-05 14:10 | HHI.DS ---
Discharge Summary Admission Date May 28, 2017 at 17:43 Discharge Date: Jun 05, 2017 Admitting Diagnosis prolapsed stoma (1) Colostomy in place ICD Codes: Z93.3 - Colostomy status Status: Chronic (2) History of radiation therapy ICD Codes: Z92.3 - Personal history of irradiation Status: Chronic (3) History of rectal cancer ICD Codes: Z85.048 - Personal history of other malignant neoplasm of rectum, rectosigmoid junction, and anus Status: Chronic (4) Parastomal hernia with obstruction, without gangrene ICD Codes: K43.3 - Parastomal hernia with obstruction, without gangrene Status: Resolved (5) History of colostomy ICD Codes: Z98.890 - Other specified postprocedural states (6) History of colon resection ICD Codes: Z90.49 - Acquired absence of other specified parts of digestive tract Status: Chronic Brief History 56 year old male s/p colostomy revision secondary to intussusception and parastomal hernia PE at Discharge Alert and awake Cardio: RRR Resp: CTAB Abd: ostomy , viable, minimal output Hospital Course This is a 56 year old male s/p colostomy revision secondary to intussusception and parastomal hernia. The patient was able to tolerate a regular diet. The patient's colostomy began function and the patient was DCed. The patient's pain was controlled using oral pain medications. Pt Condition on Discharge: Good Discharge Disposition: Discharge Home Discharge Instructions DIET: Follow Instructions for: As Tolerated, No Restrictions Activities you can perform: See Additionl Instruction Activities to Avoid: Lifting/Bending, Weight Bearing, Strenuous Activity Other Activity Instructions: Routine colostomy care Follow up Referrals: Surgical - 1 Week with Elsa Olson MD Continued Medications: Allopurinol (Allopurinol) 300 Mg Tab 300 MG PO DAILY for Gout, #30 TAB 0 Refills Amlodipine (Amlodipine) 2.5 Mg Tab 2.5 MG PO DAILY for Blood Pressure Management, #30 TAB 0 Refills Cyclobenzaprine (Flexeril) 10 Mg Tab 10 MG PO TID for Muscle Spasm, #90 TAB 0 Refills Fluoxetine (Fluoxetine) 40 Mg Cap 40 CAP PO DAILY, #30 CAP 0 Refills Gabapentin (Gabapentin) 600 Mg Tab 600 MG PO DAILY, #60 TAB 0 Refills Lorazepam (Lorazepam) 0.5 Mg Tab 0.5 MG PO BID, TAB 0 Refills Ramipril (Ramipril) 10 Mg Cap 10 MG PO DAILY, #30 CAP 0 Refills Ranitidine (Ranitidine) 150 Mg Tab 150 MG PO BID for Heartburn Management, #60 TAB 0 Refills Tadalafil (Cialis) 5 Mg Tab 5 MG PO DAILY, TAB 0 Refills Do not exceed 1 dose/day. Tamsulosin (Tamsulosin) 0.4 Mg Cap 0.8 MG PO DAILY for Manage Prostate Problems, #60 CAP 0 Refills Temazepam (Temazepam) 15 Mg Cap 15 MG PO HS PRN for INSOMNIA, #30 CAP 0 Refills Additional Information Allergies Coded Allergies Type Severity Reaction Last Updated Verified senna Allergy Severe Hives 05/28/17 Yes 06/04/17 06/04/17 06/05/17 06/05/17 06/06/17 06/06/17 06:00 18:00 06:00 18:00 06:00 18:00 Intake Total 580 ml 480 ml 480 ml Output Total 0 ml 350 ml Balance 580 ml 480 ml 130 ml Intake Oral 580 ml 480 ml 480 ml Output Urine Total 300 ml Stool Total 0 ml 50 ml # Voids 3 5 0 # Bowel Movements 0 Orders Procedure Category Date Status Time Diet Regular Basic DIET 06/04/17 Complete Lunch Magnesium Citrate Liq MED 06/04/17 Complete (Citroma Liq) 13:00 Attending Discharge DISCHARGE 06/04/17 Transmitted Order Peg (High)/E-Lyte Liq MED 06/05/17 Complete (Colyte Liq) 09:00 Bisacodyl Supp MED 06/05/17 Complete (Dulcolax Supp) 10:00 Vital Signs Date Time Temp Pulse Resp B/P (MAP) Pulse Ox O2 Delivery O2 Flow Rate FiO2 06/05/17 08:00 97.9 70 18 126/68 (87) 95 06/05/17 00:00 96.1 80 20 133/89 (104) 99 06/04/17 20:00 98.2 80 20 131/80 (97) 97 06/04/17 12:00 97.0 77 19 127/69 (88) 99 06/04/17 08:00 96.9 73 18 125/72 (89) 98 06/04/17 00:43 99.0 80 20 105/54 (71) 97 06/03/17 20:44 98.5 82 18 110/73 (85) 97 06/03/17 16:00 96.2 72 17 109/71 (84) 95 06/03/17 12:00 98.0 76 16 110/70 (83) 96 Last Impressions Chest X-Ray 05/28/17 1730 Signed Impressions: Service Date/Time: May 17:55 - CONCLUSION: No evidence of acute cardiopulmonary disease. Tyrese Augustin MD Abdomen X-Ray 05/28/17 0000 Signed Impressions: Service Date/Time: May 18:25 - CONCLUSION: Nonspecific distention of the colon with a large amount of stool. Nondistended stomach and small bowel. Tyrese Augustin MD Attending Statement NOTE FOR SURGICAL ATTENDING, DR. ELSA OLSON I agree with above assessment and plan. The exam, history, and the medical decision-making described in the above note were completed with the assistance of the mid-level provider. I reviewed and agree with the findings presented. I attest that I had a [id number] encounter with the patient on the same day, and personally performed and documented my assessment and findings in the medical record. The following services were provided during this hospital visit: Chart data review, vital sign assessments/reviewing monitor data Review of consultations notes if present. Medication orders/review and/or management Ordering and/or reviewing lab tests Ordering and/or interpreting/reviewing x-rays and/or diagnostic studies Care of the patient and discussion of the patient with the care team Documentation time To help prompt me to consider important information that might be impacting today's encounter and assessment, information from prior notes written by myself or my colleagues may have been "brought forward/copy and pasted" into today's note. Maranda Mai Jun 05, 2017 14:10 Elsa Olson MD Jun 06, 2017 09:56
== END 2017-06-05 12:00 | disposition home or self-care (01) | DRG 330 ==
LOC: NEPC 12:57 → NEDA 17:43 → N07B 20:18
PROVIDERS: ADMIT Surgery; ATTEND Surgery
PROC: 0WQF0ZZ Repair Abdominal Wall, Open Approach (ICD-10-PCS; 2017-05-29)
PROC: 0D1K0Z4 Bypass Ascending Colon to Cutaneous, Open Approach (ICD-10-PCS; 2017-05-29)
PROC: 0DBN0ZZ Excision of Sigmoid Colon, Open Approach (ICD-10-PCS; 2017-05-29)
PROC: 0DBM0ZZ Excision of Descending Colon, Open Approach (ICD-10-PCS; principal; 2017-05-29 13:42)
DX: K43.3 Parastomal hernia with obstruction, without gangrene (principal); K56.1 Intussusception; I10 Essential (primary) hypertension; K94.09 Other complications of colostomy; Z85.048 Personal history of other malignant neoplasm of rectum, rectosigmoid junction, and anus; E66.9 Obesity, unspecified; Z68.34 Body mass index [BMI] 34.0-34.9, adult; Z92.21 Personal history of antineoplastic chemotherapy; Z92.3 Personal history of irradiation
CPT/HCPCS: 49999; 71010; 74000; 80048; 83605; 85025; 85610; 85730; 88302; 88304; 88307; 93005; 94150; 94640; 94664; 99156; 99157; J1170; J1642; J1650; J1956; J2175; J2250; J2710; J3010; J7030; J7120